=== PATIENT | male | born 1960 | race Caucasian/White ===

== ENCOUNTER 2024-05-07 23:36 | Emergency (ER) | payer OTHER, SELFPAY ==
[2024-05-07 23:51] VITALS: BP 174/106
[2024-05-08 00:29] LABS: COVID-19 Antigen Negative (Negative)
[2024-05-08 03:29] VITALS: BP 156/92; BMI 17.2
--- NOTE | 2024-05-08 06:51 | ED.GENMED ---
History of Present Illness
General
Chief Complaint: Cold/Flu/URI Symptoms
Source: patient
Exam Limitations: none
Time Seen by Provider: 05/08/24 06:39
Nursing documentation reviewed up to this point in time: agreed with
History of Present Illness
History of Present Illness:
64-year-old male presents emergency vomiting planing of fever Wednesday, Wednesday and Wednesday, and then tonight his fever came back. He states he did receive a flu shot. He has had some coughing.
Past History
Past History
ED Past Medical History: Other (Alcohol abuse)
ED Past Surgical History: Other (Bilateral ear surgery)
Social History
Tobacco: Smoker
Alcohol: Chronic alcoholic
Drug: Marijuana, Cocaine and Narcotics
Personal:
Living: homeless
Employment: Not employed
Family History
Family History: Unable to obtain
Review of Systems
Review of Systems
Allergies reviewed?: Yes
All Other Systems: Not applicable
Constitutional: Reports fever
EENT: Reports no symptoms
Respiratory: Reports cough and trouble breathing
Cardiac: Reports no symptoms
ABD/GI: Reports no symptoms
: Reports no symptoms
Musculoskeletal: Reports no symptoms
Skin: Reports no symptoms
Neurological: Reports no symptoms
Endocrine: Reports no symptoms
Hematologic/Lymphatic: Reports no symptoms
Psychiatric: Reports no symptoms
Phy Exam
Physical Exam
Physical Exam:
Physical Exam
General: no apparent distress, not acutely ill
Neck: supple. no meningeal signs. normal posterior pharynx
Heart: s1/s2 regular rate and rhythm, no murmur. equal radial
pulses.
HEENT: Pupils equal round reactive to light, EOMI
Lungs: no acute respiratory distress. clear bilaterally, intermittent cough
Abdomen: normal bowel sounds. not tender. no CVAT
Neuro: alert and oriented. no focal neurological deficits cranial nerves II through XII intact
Skin: no rash
Psychiatric: well kept. interactive and cooperative
Extremities: no edema. no calf tenderness. negative homans. good distal pulses
Course
Orders/Labs/Results
Orders:
Orders
05/07/24 23:55
COVID-19 Antigen Urgent
Source: Nasal Swab
Influenza A+B Rapid Molecular Urgent
ELENA Source: Nasal Swab
Specimen Description:
05/08/24 00:00
CR Chest - 2 Views Urgent
Reason For Exam: SOB
Vital Signs
Initial and Last Documented VS:
Initial Vital Signs
Temp Pulse Resp BP Pulse Ox
98.2 F 84 22 174/106 100
05/07/24 23:51 05/07/24 23:51 05/07/24 23:51 05/07/24 23:51 05/07/24 23:51
Last Documented Vital Signs
Temp Pulse Resp BP Pulse Ox
97.4 F 80 16 156/92 97
05/08/24 03:29 05/08/24 03:29 05/08/24 03:29 05/08/24 03:29 05/08/24 03:29
MDM/Problems Addressed
Differential Diagnosis Includes:
Pneumonia, influenza
MDM/Problems Addressed:
64-year-old male with influenza A, vital signs stable, chest x-ray no infiltrates. Will treat with Tamiflu. Discharged to follow-up with primary care. Return precautions given.
*Radiology
Radiology exam reviewed: preliminary read by ED provider (Chest x-ray no acute findings)
*Pulse Oximetry
Patient hypoxic: no
*Pillar Man Interpretation
Rate: Pillar Man- N/A
*Critical Care Note
Total Time (30-74mins, 75-104mins- exclusive of procedures): Not Applicable
Patient Management
Social determinants of health affecting care: Living situation, Substance abuse (Alcohol, tobacco) and Strong social support
Escalation/DeEscalation of care consider admission/obs:
Admit not indicated
ED Attending Note
-
Portions of this chart may have been created with voice recognition software.� Occasional wrong word or��sound alike� substitutions may have occurred due to the inherent limitations of voice recognition software.
Discharge Plan
Departure
Patient Disposition: Home (Routine Discharge)
Date of Disposition: 05/08/24
Time of Disposition: 06:55
Patient with high blood pressure during this ER visit?: Yes
Condition: Good
Discharge Problem:
Influenza A
Instructions: Flu in adults - ED discharge instructions, BLOOD PRESSURE
Prescriptions:
New
oseltamivir [Tamiflu] 75 mg capsule
75 mg PO BID Qty: 10 0RF
No Action
polyethylene glycol 3350 17 GRAMS powder in packet
17 grams PO DAILY 0RF
thiamine HCl (vitamin B1) 100 MG tablet
100 mg PO BID 0RF
folic acid 1 MG tablet
1 mg PO DAILY 0RF
furosemide 20 MG tablet
20 mg PO BID Qty: 60 0RF
sodium chloride 1 GRAM tablet,soluble
0.5 g PO BID Qty: 60 0RF
multivitamin with folic acid [Tab-A-Galen] 1 TABLET tablet
1 tab PO DAILY 0RF
metoprolol tartrate 100 MG tablet
100 mg PO Q12H Qty: 60 0RF
Referrals:
Edi Arredondo MD [Family Provider] - Call in 1-3 days for appt
Interventions
Interventions:
*Risk Screen - Suicide Last Done: 05/07/24 23:51
*General Assessment Last Done: 05/08/24 03:29
*Neglect/Abuse Screening Last Done: 05/07/24 23:51
ED- Fall Risk Assessment Last Done: 05/08/24 03:29
*ED COVID-19 Vaccine History Last Done: 05/08/24 03:29
ED- Pulmonary Assessment Last Done: 05/08/24 03:29
Discharge Date and Time
Print Language: PASHTO
== END 2024-05-08 07:11 | disposition home or self-care (01) ==
LOC: EMR 23:36
PROVIDERS: Emergency Medicine; EMERGENCY PHYSICIAN Emergency Medicine; FAMILY PHYSICIAN Internal Medicine
DX: J10.1 Influenza due to other identified influenza virus with other respiratory manifestations (principal); F17.200 Nicotine dependence, unspecified, uncomplicated
CPT/HCPCS: 99283; 71046; 87502; 87811